=== PATIENT | male | born 1980 | race Two or more races ===

== ENCOUNTER 2017-04-14 06:22 | Emergency (ER) | payer OTHER ==
[~2017-04-14] VITALS: Ht 170.2 cm; Wt 76.6 kg
[2017-04-14 06:23] VITALS: BP 153/93
[2017-04-14] MEDS ORDERED: LIDOCAINE 1%, 20ML SQ ONE (07:00)
[2017-04-14] MEDS ORDERED: DIPH,PERTUSS(ACELL),TET VAC/PF 0.5 ML IM-VACC ONE (07:00)
[2017-04-14] MEDS ORDERED: LIDOCAINE 1%, 10ML ONE (07:18)
== END 2017-04-14 08:08 | disposition home or self-care (01) ==
LOC: ED 07:06
DX: S61.512A Laceration without foreign body of left wrist, initial encounter (principal); W27.8XXA Contact with other nonpowered hand tool, initial encounter; Y93.89 Activity, other specified; Y99.8 Other external cause status; Y92.69 Other specified industrial and construction area as the place of occurrence of the external cause
CPT/HCPCS: 12001; 99283; J3490